=== PATIENT | female | born 1990 | race Caucasian/White ===

== ENCOUNTER 2017-10-01 23:45 | Outpatient (CLI) | payer MEDICAID ==
[~2017-10-01] VITALS: Ht 162.6 cm; Wt 68.0 kg
[~2017-10-01 23:45] MED LIST: CEPH-368 PO
[2017-10-02 00:33] LABS: MICROSCOPIC INDICATED
[2017-10-04] MEDS ORDERED: PNV1TABL97 PO (12:01)
== END 2017-10-02 02:40 | disposition home or self-care (01) ==
LOC: LDOP 23:45
PROVIDERS: ATTEND Obstetrics & Gynecology Maternal & Fetal Medicine
DX: O62.4 Hypertonic, incoordinate, and prolonged uterine contractions (principal); O99.343 Other mental disorders complicating pregnancy, third trimester; F32.9 Major depressive disorder, single episode, unspecified; F41.9 Anxiety disorder, unspecified; Z3A.40 40 weeks gestation of pregnancy
CPT/HCPCS: 59025; 81001; 87086; 99211; G0463